=== PATIENT | male | born 1945 | race Caucasian/White ===

== ENCOUNTER 2020-05-28 08:06 | Emergency (ER) | payer OTHER ==
[~2020-05-28] VITALS: Ht 190.5 cm; Wt 114.3 kg
[~2020-05-28 08:06] MED LIST: ALBU3IS INH; ALBU90OI INH; ALLERGY10 MG PO; AMLO10 PO; ASPI81CH PO; Arthritis Pai42.5 GM TOP; BENMENLOZ PO; BENZ100A PO; BUDE6HFA INH; BUPR100 PO; BUPR100ER PO; CHOL10002 PO; COMBIVENT RESPIM4 GM INH; Doc-Q-Lace100 MG PO; FERR325 PO; FLUT220OIA; GAVILAX17 GM PO; GUAI600T33 PO; Guaifenesin Wit10 ML PO; LEVFLO500 PO; LIOT25 PO; LIOT50 PO; LITH300C PO; LORA.5 PO; LORA10 PO; MELA3 PO; OXYB5 PO; OXYC5 PO; PANT40 PO; PRAZ1 PO; PRAZ2 PO; PRAZ5 PO; PRED20 PO; PROP10 PO; Prednisone20 MG PO; QUET25 PO; RANI150 PO; Restoril30 MG PO; SENN187 PO; TAMS.4ER PO; TRAZ50 PO; TRIA80TC TOP; VITAMIN B12-FO1 EACH PO; Zithromax250 MG PO
[2020-05-28] MEDS ORDERED: Amoxicillin500 MG PO (08:46)
[2020-05-28] MEDS ORDERED: CIPRODEX OTIC7.5 M1 BOTHEARS (08:46)
== END 2020-05-28 08:56 | disposition home or self-care (01) ==
LOC: ER 08:06
DX: H66.93 Otitis media, unspecified, bilateral (principal); H60.93 Unspecified otitis externa, bilateral; J44.9 Chronic obstructive pulmonary disease, unspecified; F03.90 Unspecified dementia, unspecified severity, without behavioral disturbance, psychotic disturbance, mood disturbance, and anxiety; F43.10 Post-traumatic stress disorder, unspecified; Z87.891 Personal history of nicotine dependence; Z79.899 Other long term (current) drug therapy; Z79.82 Long term (current) use of aspirin; Z79.51 Long term (current) use of inhaled steroids; Z88.8 Allergy status to other drugs, medicaments and biological substances
CPT/HCPCS: 99282

== ENCOUNTER 2020-09-13 11:48 | Emergency (ER) | payer OTHER ==
[~2020-09-13] VITALS: Ht 190.5 cm; Wt 116.6 kg
[~2020-09-13 11:48] MED LIST changes: +Amoxicillin500 MG PO; +CIPRODEX OTIC7.5 M1 BOTHEARS
[2020-09-13] MEDS ORDERED: ATOR40TA PO (12:16)
[2020-09-13] MEDS ORDERED: BACL10 PO (12:17)
[2020-09-13] MEDS ORDERED: BUSP10 PO (12:18)
[2020-09-13] MEDS ORDERED: THERA-D2000 UNIT PO (12:19)
[2020-09-13] MEDS ORDERED: Colace250 MG PO (12:20)
[2020-09-13] MEDS ORDERED: LEVSOD75 PO (12:20)
[2020-09-13] MEDS ORDERED: FINA5 PO (12:20)
[2020-09-13] MEDS ORDERED: LIDO700A20 TOP (12:21)
[2020-09-13] MEDS ORDERED: MEMA5TAB PO (12:21)
[2020-09-13] MEDS ORDERED: OXYB5 PO (12:22)
[2020-09-13] MEDS ORDERED: Percocet 5-3251 EACH PO (12:23)
[2020-09-13] MEDS ORDERED: QUET25 PO (12:24)
[2020-09-13] MEDS ORDERED: PANT40 PO (12:24)
[2020-09-13] MEDS ORDERED: VALP250 PO (12:25)
[2020-09-13] MEDS ORDERED: TAMS.4ER PO (12:25)
[2020-09-13 12:28] LABS: BASOPHILS ABSOLUTE AUTO 0.03 K/mm3 (0.00-0.23); BASOPHILS PERCENT AUTO 1 % (0-2); EOSINOPHILS ABSOLUTE AUTO 0.09 K/mm3 (0.00-0.68); EOSINOPHILS PERCENT AUTO 2 % (0-6); Hematocrit 43.7 % (37.0-53.0); Hemoglobin 13.8 g/dL (13.5-17.5); IMMATURE GRAN ABSOLUTE AUTO 0.02 K/mm3 (0.00-0.10); IMMATURE GRAN PERCENT AUTO 1 % (0-1); LYMPHOCYTES ABSOLUTE AUTO 1.16 K/mm3 (0.84-5.20); LYMPHOCYTES PERCENT AUTO 27 % (21-46); MONOCYTES ABSOLUTE AUTO 0.42 K/mm3 (0.16-1.47); MONOCYTES PERCENT AUTO 10 % (4-13); Mean Corpuscular HGB 26.4 pg (26.0-34.0); Mean Corpuscular HGB Conc 31.6 g/dL (31.5-36.5); Mean Corpuscular Volume 84 fL (80-100); Mean Platelet Volume 12.5 fL (9.1-12.4); NEUTROPHILS ABSOLUTE AUTO 2.61 K/mm3 (1.96-9.15); NEUTROPHILS PERCENT AUTO 60 % (41-73); Platelet Count 113 K/mm3 (150-400); RDW Coefficient Variation 15.3 % (11.7-14.2); RDW Standard Deviation 46.5 fL (35.1-46.3); Red Blood Cell Count 5.22 M/mm3 (4.30-5.90); White Blood Cell Count 4.33 K/mm3 (4.00-11.30)
[2020-09-13] MEDS ORDERED: STRIVERDI RESPIM4 G1 INH (12:28)
[2020-09-13 12:44] LABS: Alanine Aminotransfer (ALT/SGP 21 U/L (12-78); Albumin, Blood 3.3 g/dL (3.4-5.0); Albumin/Globulin Ratio 1.1 (0.8-1.8); Alk Phos 54 U/L (50-136); Anion Gap 4 mmol/L (6-16); Aspartate Aminotrans (AST/SGOT 22 U/L (12-37); Bilirubin, Total 0.5 mg/dL (0.1-1.0); Blood Urea Nitrogen 21 mg/dL (8-24); Bun/Creatinine Ratio 21.1 (12.0-20.0); CO2, Blood 27 mmol/L (21-32); Calcium, Blood 8.1 mg/dL (8.5-10.1); Chloride, Blood 112 mmol/L (98-108); Globulin, Blood 2.9 g/dL (2.2-4.0); Glomerular Filtration Rate >60 (60-); Glucose, Blood 91 mg/dL (70-99); Sodium, Blood 143 mmol/L (136-145); Total Protein, Blood 6.2 g/dL (6.4-8.2); Troponin I <0.015 ng/mL (0.000-0.040)
[2020-09-13] MEDS ORDERED: CEPH500 PO (13:30)
== END 2020-09-13 14:00 | disposition home or self-care (01) ==
LOC: ER 11:48
PROVIDERS: Emergency Medicine
DX: R55 Syncope and collapse (principal); L03.116 Cellulitis of left lower limb; J44.9 Chronic obstructive pulmonary disease, unspecified; I10 Essential (primary) hypertension; E03.9 Hypothyroidism, unspecified; K21.9 Gastro-esophageal reflux disease without esophagitis; Z88.8 Allergy status to other drugs, medicaments and biological substances; Z79.899 Other long term (current) drug therapy
CPT/HCPCS: 36415; 80053; 84484; 85025; 93005; 93010; 93922; 99285-25

== ENCOUNTER 2021-10-29 17:25 | Emergency (ER) | payer OTHER ==
[~2021-10-29] VITALS: Ht 190.5 cm; Wt 122.9 kg
[~2021-10-29 17:25] MED LIST changes: +ATOR40TA PO; +BACL10 PO; +BUSP10 PO; +CEPH500 PO; +Colace250 MG PO; +FINA5 PO; +LEVSOD75 PO; +LIDO700A20 TOP; +MEMA5TAB PO; +Percocet 5-3251 EACH PO; +STRIVERDI RESPIM4 G1 INH; +THERA-D2000 UNIT PO; +VALP250 PO
[2021-10-29 18:28] LABS: BASOPHILS ABSOLUTE AUTO 0.03 K/mm3 (0.00-0.23); BASOPHILS PERCENT AUTO 1 % (0-2); EOSINOPHILS PERCENT AUTO 2 % (0-6); Hematocrit 46.5 % (37.0-53.0); IMMATURE GRAN ABSOLUTE AUTO 0.01 K/mm3 (0.00-0.10); IMMATURE GRAN PERCENT AUTO 0 % (0-1); LYMPHOCYTES PERCENT AUTO 25 % (21-46); MONOCYTES ABSOLUTE AUTO 0.45 K/mm3 (0.16-1.47); MONOCYTES PERCENT AUTO 7 % (4-13); Mean Corpuscular HGB 25.4 pg (26.0-34.0); Mean Corpuscular HGB Conc 32.3 g/dL (31.5-36.5); Mean Corpuscular Volume 79 fL (80-100); NEUTROPHILS ABSOLUTE AUTO 3.99 K/mm3 (1.96-9.15); NEUTROPHILS PERCENT AUTO 66 % (41-73); Platelet Count 97 K/mm3 (150-400); RDW Coefficient Variation 16.7 % (11.7-14.2); RDW Standard Deviation 48.2 fL (35.1-46.3); White Blood Cell Count 6.08 K/mm3 (4.00-11.30)
[2021-10-29 18:30] LABS: Mean Platelet Volume 11.5 fL (9.1-12.4)
[2021-10-29 18:44] LABS: Alanine Aminotransfer (ALT/SGP 19 U/L (12-78); Albumin, Blood 4.2 g/dL (3.4-5.0); Albumin/Globulin Ratio 1.2 (0.8-1.8); Alk Phos 71 U/L (50-136); Anion Gap 4 mmol/L (6-16); Aspartate Aminotrans (AST/SGOT 14 U/L (12-37); Bilirubin, Total 0.7 mg/dL (0.1-1.0); Blood Urea Nitrogen 17 mg/dL (8-24); Bun/Creatinine Ratio 21.4 (12.0-20.0); CO2, Blood 27 mmol/L (21-32); Calcium, Blood 9.1 mg/dL (8.5-10.1); Chloride, Blood 106 mmol/L (98-108); Creatinine, Blood 0.79 mg/dL (0.60-1.20); Globulin, Blood 3.4 g/dL (2.2-4.0); Glomerular Filtration Rate >60 (60-); Glucose, Blood 100 mg/dL (70-99); Potassium, Blood 4.1 mmol/L (3.5-5.5); Sodium, Blood 137 mmol/L (136-145); Total Protein, Blood 7.6 g/dL (6.4-8.2)
[2021-10-29] MEDS ORDERED: PREG300 PO (19:31)
[2021-10-29] MEDS ORDERED: TRAM50 PO (19:32)
[2021-10-29] MEDS ORDERED: ACET500 PO (19:33)
[2021-10-29] MEDS ORDERED: B-121000 MC3 PO (19:34)
[2021-10-29] MEDS ORDERED: Flomax0.4 MG PO (19:40)
[2021-10-29] MEDS ORDERED: ADULT GLYCERIN1 EACH PR (20:46)
[2021-10-29] MEDS ORDERED: MAGCIT300 PO (20:46)
== END 2021-10-29 21:25 | disposition home or self-care (01) ==
LOC: ER 17:25
PROVIDERS: Physician Assistant
DX: K59.00 Constipation, unspecified (principal); K44.9 Diaphragmatic hernia without obstruction or gangrene; J44.9 Chronic obstructive pulmonary disease, unspecified; I10 Essential (primary) hypertension; E03.9 Hypothyroidism, unspecified; G47.30 Sleep apnea, unspecified; K21.9 Gastro-esophageal reflux disease without esophagitis; Z87.891 Personal history of nicotine dependence; Z79.899 Other long term (current) drug therapy
CPT/HCPCS: 36415; 74177; 80053; 85025; A9270; Q9967

== ENCOUNTER 2022-10-22 13:20 | Inpatient (IN) | payer OTHER ==
[~2022-10-22] VITALS: Ht 190.5 cm; Wt 118.0 kg
[~2022-10-22 13:20] MED LIST changes: +ACET500 PO; +ADULT GLYCERIN1 EACH PR; +B-121000 MC3 PO; +Flomax0.4 MG PO; +LOPE2C PO; +MAGCIT300 PO; +PREG300 PO; +SEROQUEL25 MG PO; +TRAM50 PO; +Voltaren100 GM TOP
[2022-10-22 14:37] LABS: BASOPHILS ABSOLUTE AUTO 0.02 K/mm3 (0.00-0.23); BASOPHILS PERCENT AUTO 0 % (0-2); EOSINOPHILS ABSOLUTE AUTO 0.07 K/mm3 (0.00-0.68); EOSINOPHILS PERCENT AUTO 1 % (0-6); Hematocrit 33.6 % (37.0-53.0); Hemoglobin 10.1 g/dL (13.5-17.5); IMMATURE GRAN ABSOLUTE AUTO 0.02 K/mm3 (0.00-0.10); IMMATURE GRAN PERCENT AUTO 0 % (0-1); LYMPHOCYTES PERCENT AUTO 14 % (21-46); MONOCYTES ABSOLUTE AUTO 0.78 K/mm3 (0.16-1.47); MONOCYTES PERCENT AUTO 10 % (4-13); Mean Corpuscular HGB 21.8 pg (26.0-34.0); Mean Corpuscular HGB Conc 30.1 g/dL (31.5-36.5); Mean Corpuscular Volume 72 fL (80-100); NEUTROPHILS ABSOLUTE AUTO 5.71 K/mm3 (1.96-9.15); NEUTROPHILS PERCENT AUTO 74 % (41-73); Platelet Count 131 K/mm3 (150-400); RDW Coefficient Variation 18.1 % (11.7-14.2); RDW Standard Deviation 46.4 fL (35.1-46.3); Red Blood Cell Count 4.64 M/mm3 (4.30-5.90)
[2022-10-22 14:49] LABS: Albumin, Blood 3.4 g/dL (3.4-5.0); Albumin/Globulin Ratio 1.1 (0.8-1.8); Bilirubin, Total 0.3 mg/dL (0.1-1.0); Bun/Creatinine Ratio 19.9 (12.0-20.0); Calcium, Blood 8.6 mg/dL (8.5-10.1); Creatinine, Blood 0.96 mg/dL (0.60-1.20); Potassium, Blood 3.9 mmol/L (3.5-5.5); Total Protein, Blood 6.4 g/dL (6.4-8.2)
[2022-10-23 05:24] LABS: BASOPHILS ABSOLUTE AUTO 0.02 K/mm3 (0.00-0.23); BASOPHILS PERCENT AUTO 0 % (0-2); EOSINOPHILS PERCENT AUTO 2 % (0-6); Hematocrit 33.6 % (37.0-53.0); Hemoglobin 10.4 g/dL (13.5-17.5); IMMATURE GRAN ABSOLUTE AUTO 0.02 K/mm3 (0.00-0.10); IMMATURE GRAN PERCENT AUTO 0 % (0-1); LYMPHOCYTES ABSOLUTE AUTO 1.22 K/mm3 (0.84-5.20); LYMPHOCYTES PERCENT AUTO 19 % (21-46); MONOCYTES ABSOLUTE AUTO 0.67 K/mm3 (0.16-1.47); MONOCYTES PERCENT AUTO 11 % (4-13); Mean Corpuscular HGB 22.2 pg (26.0-34.0); Mean Corpuscular Volume 72 fL (80-100); NEUTROPHILS ABSOLUTE AUTO 4.29 K/mm3 (1.96-9.15); NEUTROPHILS PERCENT AUTO 68 % (41-73); Platelet Count 135 K/mm3 (150-400); RDW Coefficient Variation 18.4 % (11.7-14.2); RDW Standard Deviation 45.9 fL (35.1-46.3); Red Blood Cell Count 4.69 M/mm3 (4.30-5.90); White Blood Cell Count 6.32 K/mm3 (4.00-11.30)
[2022-10-23 05:45] LABS: Albumin, Blood 3.2 g/dL (3.4-5.0); Albumin/Globulin Ratio 0.9 (0.8-1.8); Bilirubin, Total 0.5 mg/dL (0.1-1.0); Bun/Creatinine Ratio 19.9 (12.0-20.0); Calcium, Blood 8.5 mg/dL (8.5-10.1); Creatinine, Blood 0.86 mg/dL (0.60-1.20); Globulin, Blood 3.4 g/dL (2.2-4.0); Potassium, Blood 3.6 mmol/L (3.5-5.5); Total Protein, Blood 6.6 g/dL (6.4-8.2)
--- NOTE | 2022-10-23 06:15 | NUR ---
SHIFT SUMMARY A/Ox3-4 AND IS COOPERATIVE WITH CARE PROVIDED BY MEMBERS OF STAFF. ABLE TO MAKE NEEDS KNOWN AND ANSWERS QUESTIONS APPROPRIATELY. MAINTAINS SPO2 >90% ON 2-3L VIA NO WITH NO C/O SOB OR DYSPNEA WHILE AT REST. CARDIAC [place], REMAINED SR W/PVC'S 70-90'S. SBP REMAINS STABLE WITH NO REPORTS OF CP OR PRESSURE T/O THE NIGHT. PT WAS ER ADMIT FROM [facility] YESTERDAY PM. PT TESTED POSITIVE FOR COVID-19 AT [facility] AND WAS BROUGHT TO PCU. RAPID ANTIGEN TEST PERFORMED HERE WITH NEGATIVE RESULTS. ABLE TO IND VOID IN THE URINAL. VERY UNITED [place], BUT DOES MAKE USE OF BILAT HEARING AIDES. NO ACUTE CHANGES OVER NIGHT. HAS BEEN RECEIVING ANITBIOTICS ORDERED PER EMAR. NO NEW ORDERS AT THIS TIME, WILL REPORT TO ONCOMING RN.
--- NOTE | 2022-10-23 10:18 | NUR ---
AM NOTE: PATIENT ALERT AND ORIENTED X3. MILD DEMENTIA. PATIENT BEING GOOFY AND JOKING AROUND WITH STAFF THIS MORNING. VERY HARD OF HEARING. BILATERAL HEARING AIDS IN PLACE. PERRLA, WEARING GLASSES. DENIES HEADACHE/DIZZINESS. FOLLOWING COMMANDS. BILATERAL HEALTH ADMINISTRATOR STRENGTH AND EXTREMITY MOVEMENTS. UP TO CHAIR WITH OT. ONE PERSON ASSIST WITH FWW AND GAIT BELT. BED BATH GIVEN THIS MORNING. TELE SHOWING SR WITH HR 70-80'S. BP STABLE. DENIES CHEST PAIN/PRESSURE. HEART TONES DISTANT. NO SIGNS OF EDEMA. PPP. ON RA-2L. NEEDING 2L WHEN WORKING WITH OT. SATING 90-94% ON ROOM AIR AT REST. LUNGS SOUNDING CLEAR IN UPPER LOBES AND COARSE IN LOWER. OCCASIONAL MOIST/CONGESTED SOUNDING COUGH WITH MODERATE THICK SPUTUM. SPEECH THERAPY IN THIS AM AND NEW ORDERS IN PLACE. PATIENT STATES HE HAS A SPEECH THERAPIST FROM THE [place] THAT COMES TO HIS HOUSE TO SEE HIM. DENIES ABDOMINAL PAIN/NAUSEA. BOWEL TONES PRESENT. EATING WNL PER SPEECH ORDERS. USING URINAL AND OCCASIONAL INCONTINENT EPISODES. INCENTIVE SPIROMETER PROVIDED AND EDUCATED BY THIS RN. SPOKE WITH BRINA ON PHONE THIS MORNING AND PROVIDED UPDATE. PATIENT SITTING IN RECLINER AT THIS TIME WITH CHAIR ALARM IN PLACE WATCHING TV. ABLE TO MAKE NEEDS KNOWN USING CALL LIGHT. WILL CONTINUE TO MONITOR.
--- NOTE | 2022-10-23 17:49 | NUR ---
SHIFT SUMMARY: NO ACUTE CHANGES. VITAL SIGNS REMAINS STABLE. PATIENT REMAINS ON ROOM AIR, SATING ABOVE 94%. NO TELE EVENTS. COMPLAINS OF SHOULDER PAIN, MEDICATED PER EMAR X1 WITH GOOD RELIEF. EATING AND VOIDING WNL. BED BATH GIVEN. PATIENT STATES HE FELT GREAT THIS MORNING AND THEN DIDN'T FEEL WELL THROUGHOUT THE AFTERNOON. FLUTTER AND INCENTIVE SPIROMETER ENCOURAGED. PATIENT COUGHING UP MODERATE AMOUNT OF SPUTUM. SPEECH THERAPY ORDERS IN PLACE AND FOLLOWED. ABX INFUSED. BRINA IN TO VISIT AND UPDATED ON PLAN OF CARE. WILL CONTINUE TO MONITOR AND REPORT OFF TO ONCOMING RN.
[2022-10-23] MEDS ORDERED: Voltaren100 GM TOP (18:19)
--- NOTE | 2022-10-23 20:50 | NUR ---
ASSUMPTION OF CARE THIS RN ASSUMED CARE OF PATIENT AT 1900. REPORT TAKEN FROM KRISH GARCÍA. PATIENT IS ALERT AND ORIENTED X3-4. FORGETFUL. [place]. FOLLOWING COMMANDS AND ANSWERING QUESTIONS APPROPRIATELY. BECOMES DISTRACTED EASILY; TANGENTIAL SPEECH. BP STABLE. SR WITH FREQUENT PVC'S NOTED, HR 70-80'S. AFEBRILE. SPO2 >90% ON RA. DENIES SOB AT THIS TIME. DENIES CHEST PAIN/PRESSURE. INCONTINENT OF URINE, REQUIRING BED CHANGE AT SHIFT CHANGE. BED IN LOWEST POSITION AND CALL LIGHT WITHIN REACH.
--- NOTE | 2022-10-24 04:29 | NUR ---
SHIFT SUMMARY NO ACUTE CHANGES OVERNIGHT. PATIENT PLACED ON 2L VIA NC WHILE SLEEPING D/T SLEEP APNEA AND DESATTING WHILE SLEEPING. OTHERWISE VITALS STABLE. PATIENT [place]. ALERT AND ORIENTED 3-4. FORGETFUL. HX DEMENTIA. INCONTINENT OF URINE. PATIENT ROLLING SELF IN BED INDEPENDENTLY. BED IN LOWEST POSITION AND CALL LIGHT WITHIN REACH. THIS RN WILL CONTINUE TO MONITOR UNTIL SHIFT CHANGE AT 0700.
[2022-10-24 05:05] LABS: BASOPHILS ABSOLUTE AUTO 0.03 K/mm3 (0.00-0.23); BASOPHILS PERCENT AUTO 1 % (0-2); EOSINOPHILS PERCENT AUTO 2 % (0-6); Hematocrit 33.6 % (37.0-53.0); Hemoglobin 10.1 g/dL (13.5-17.5); IMMATURE GRAN ABSOLUTE AUTO 0.03 K/mm3 (0.00-0.10); IMMATURE GRAN PERCENT AUTO 1 % (0-1); LYMPHOCYTES ABSOLUTE AUTO 1.05 K/mm3 (0.84-5.20); LYMPHOCYTES PERCENT AUTO 21 % (21-46); MONOCYTES ABSOLUTE AUTO 0.61 K/mm3 (0.16-1.47); MONOCYTES PERCENT AUTO 12 % (4-13); Mean Corpuscular HGB 21.8 pg (26.0-34.0); Mean Corpuscular HGB Conc 30.1 g/dL (31.5-36.5); Mean Corpuscular Volume 72 fL (80-100); NEUTROPHILS ABSOLUTE AUTO 3.31 K/mm3 (1.96-9.15); NEUTROPHILS PERCENT AUTO 65 % (41-73); Platelet Count 118 K/mm3 (150-400); RDW Coefficient Variation 18.4 % (11.7-14.2); RDW Standard Deviation 46.8 fL (35.1-46.3); Red Blood Cell Count 4.64 M/mm3 (4.30-5.90); White Blood Cell Count 5.13 K/mm3 (4.00-11.30)
[2022-10-24 05:23] LABS: Bun/Creatinine Ratio 20.4 (12.0-20.0); Calcium, Blood 8.2 mg/dL (8.5-10.1); Creatinine, Blood 0.69 mg/dL (0.60-1.20); Potassium, Blood 3.5 mmol/L (3.5-5.5)
[2022-10-24] MEDS ORDERED: AMOX875 PO (13:28)
[2022-10-24] MEDS ORDERED: VISBIOME 112.51 EACH PO (13:31)
--- NOTE | 2022-10-24 17:23 | NUR ---
PT DISCHARGE TO HOME WITH DISCHARGE ORDERS AND HOME HEALTH. HOME O2 EVAL DONE PT REQUIRING 1L OF O2 WITH EXERTION, PSYCHOLOGIST CLINICAL [facility] AND SAID IT MIGHT TAKE 2 DAYS TO GET IT DELIVERED, PT REALLY WANTING TO GO HOME DR BARRIOS WAS CALLED OKAY'D THE PT TO GO HOME TODAY WITHOUT O2 AND [facility]LLOW UP [facility] TOM[facility] SINCE PT HAS BEEN ON RA SATTING 94-96% ALL DAY AND JUST HAVE IT JUST INCASE HE NEEDS IT AT HOME. BOTH AND PT WERE AGREEABLE. REFERRAL TO [facility] PER . PT DENIES ANY CHEST PAIN/PRESSURE, HAS BEEN STANDING AND AMBULATING VIA WALKER SBA, PT WORKED WITH PT/OT WITH NO ISSUES, TO CONTINUE PT ON [facility] SOFT AND NECTAR THICK DIET PER SPEECH THERAPIST. NO OTHER ISSUES ENCOUNTERED PT ACCOMPANIED VIA WHEELCHAIR FOR TRANSPORT ALL BELONGINGS SENT WITH THE PT, PROVIDED TRANSPORTATION.
== END 2022-10-24 16:00 | disposition home health service (06) | DRG 177 ==
LOC: ER 13:20 → PCU 16:45
PROVIDERS: Student in an Organized Health Care Education/Training Program; ADMIT Hospitalist
DX: J69.0 Pneumonitis due to inhalation of food and vomit (principal); J96.01 Acute respiratory failure with hypoxia; J44.0 Chronic obstructive pulmonary disease with (acute) lower respiratory infection; J98.11 Atelectasis; J44.1 Chronic obstructive pulmonary disease with (acute) exacerbation; I49.9 Cardiac arrhythmia, unspecified; N40.0 Benign prostatic hyperplasia without lower urinary tract symptoms; R13.10 Dysphagia, unspecified; K21.9 Gastro-esophageal reflux disease without esophagitis; Z66 Do not resuscitate; E78.5 Hyperlipidemia, unspecified; I10 Essential (primary) hypertension; E03.9 Hypothyroidism, unspecified; G47.33 Obstructive sleep apnea (adult) (pediatric); F43.10 Post-traumatic stress disorder, unspecified; F03.90 Unspecified dementia, unspecified severity, without behavioral disturbance, psychotic disturbance, mood disturbance, and anxiety; G89.4 Chronic pain syndrome; Z98.890 Other specified postprocedural states; Z87.891 Personal history of nicotine dependence; Z88.8 Allergy status to other drugs, medicaments and biological substances; Z79.899 Other long term (current) drug therapy; Z23 Encounter for immunization; Z79.51 Long term (current) use of inhaled steroids; Z79.02 Long term (current) use of antithrombotics/antiplatelets
CPT/HCPCS: 36415; 71046; 71260; 80048; 80053; 83880; 84443; 85025; 90686; 92526; 92610; 93005; 93010; 94664; 94761; 94762; 96372; 96374-59; 96376; 97110; 97116; 97162; 97166; 97530; 97535; 99285-25; A9270; G0008; G0378; J0295; J1650; J2543; Q9967

== ENCOUNTER 2023-07-03 13:27 | Inpatient (IN) | payer OTHER ==
[~2023-07-03] VITALS: Ht 190.5 cm; Wt 135.6 kg
[~2023-07-03 13:27] MED LIST changes: +AMOX875 PO; +Cymbalta20 MG PO; +MEMA10 PO; -MEMA5TAB PO; +MONT10T PO; +VISBIOME 112.51 EACH PO
[2023-07-03 15:01] LABS: BASOPHILS ABSOLUTE AUTO 0.04 K/mm3 (0.00-0.23); BASOPHILS PERCENT AUTO 1 % (0-2); EOSINOPHILS ABSOLUTE AUTO 0.13 K/mm3 (0.00-0.68); EOSINOPHILS PERCENT AUTO 2 % (0-6); Hematocrit 41.2 % (37.0-53.0); Hemoglobin 11.9 g/dL (13.5-17.5); IMMATURE GRAN ABSOLUTE AUTO 0.07 K/mm3 (0.00-0.10); IMMATURE GRAN PERCENT AUTO 1 % (0-1); LYMPHOCYTES ABSOLUTE AUTO 1.05 K/mm3 (0.84-5.20); LYMPHOCYTES PERCENT AUTO 13 % (21-46); MONOCYTES ABSOLUTE AUTO 0.56 K/mm3 (0.16-1.47); MONOCYTES PERCENT AUTO 7 % (4-13); Mean Corpuscular HGB Conc 28.9 g/dL (31.5-36.5); Mean Corpuscular Volume 73 fL (80-100); NEUTROPHILS ABSOLUTE AUTO 6.28 K/mm3 (1.96-9.15); NEUTROPHILS PERCENT AUTO 77 % (41-73); Platelet Count 167 K/mm3 (150-400); RDW Coefficient Variation 23.9 % (11.7-14.2); RDW Standard Deviation 59.7 fL (35.1-46.3); Red Blood Cell Count 5.68 M/mm3 (4.30-5.90); White Blood Cell Count 8.13 K/mm3 (4.00-11.30)
[2023-07-03 15:44] LABS: Albumin, Blood 3.5 g/dL (3.4-5.0); Bilirubin, Total 0.3 mg/dL (0.1-1.0); Bun/Creatinine Ratio 14.1 (12.0-20.0); Calcium, Blood 8.6 mg/dL (8.5-10.1); Creatinine, Blood 0.85 mg/dL (0.60-1.20); Globulin, Blood 3.4 g/dL (2.2-4.0); Potassium, Blood 4.5 mmol/L (3.5-5.5); Total Protein, Blood 6.9 g/dL (6.4-8.2)
[2023-07-03 16:06] LABS: Free Thyroxine 1.02 ng/dL (0.70-1.60)
[2023-07-03 16:09] LABS: Thyroid Stimulating Hormone 1.63 uIU/mL (0.360-4.800)
[2023-07-03 17:31] LABS: Anti-Xa UFH, PHA Monitoring <0.10 IU/mL; International Normalized Ratio 1.07; Prothrombin Time Results 11.2 Sec (9.7-11.5)
[2023-07-03 21:12] VITALS: BP 156/99
[2023-07-03] MEDS ORDERED: IPRAT-ALBUT 0.5-3 ML INH (22:46)
[2023-07-03] MEDS ORDERED: ASMANEX HFA13 G6 INH (22:47)
--- NOTE | 2023-07-04 04:10 | NUR ---
SHIFT SUMMARY/ADMISSION NOTE PATIENT ARRIVED TO UNIT FROM ED AT 21:02. A/Ox3, PLEASANT, CONFUSED AT TIMES, FORGETFUL. STATES HIS DEMENTIA COMES AND GOES, MANAGES ALL CARE AND MEDICATIONS. DENIES CURRENT PAIN, STATES Hx OF CHRONIC LUMBAR PAIN. WAS AT [facility] WITH C/O INCREASED FATIGUE/SOB. HAD ELEVATED HR, TAKEN TO ED, NEW AFLUTTER. ON TELE, CURENTLY IN AFIB 80-90s. ASLEEP OFF AND ON, IN NO ACUTE DISTRESS. BED ALARM ON FOR PATIENT SAFETY, CALL LIGHT IN REACH.
[2023-07-04 04:15] VITALS: BP 128/79
[2023-07-04 04:47] LABS: Hematocrit 38.4 % (37.0-53.0); Hemoglobin 11.1 g/dL (13.5-17.5); Mean Corpuscular HGB 20.9 pg (26.0-34.0); Mean Corpuscular HGB Conc 28.9 g/dL (31.5-36.5); Mean Corpuscular Volume 73 fL (80-100); Platelet Count 146 K/mm3 (150-400); RDW Coefficient Variation 23.5 % (11.7-14.2); White Blood Cell Count 6.29 K/mm3 (4.00-11.30)
[2023-07-04 06:19] LABS: Calcium, Blood 8.3 mg/dL (8.5-10.1); Creatinine, Blood 0.94 mg/dL (0.60-1.20); Potassium, Blood 4.2 mmol/L (3.5-5.5)
[2023-07-04 08:55] VITALS: BP 119/81
[2023-07-04 12:43] VITALS: BP 113/79
[2023-07-04 16:06] VITALS: BP 116/67
--- NOTE | 2023-07-04 17:54 | NUR ---
PATIENT A/O X3-4, FORGETFUL AT TIMES. VSS, WEANED DOWN TO RA THIS EVENING AND MAINTAING SATS >90%. UP IN CHAIR FOR MOST OF THE AFTERNOON, ABLE TO TRANSFER WITH FWW AND 1-2 ASSIST. VOIDING IN URINAL. 20G IV TO R FA WNL AND SL. A-FLUTTER ON TELE, RATE CONTROLLED IN THE 70-80'S THIS SHIFT. PATIENT USING CALL LIGHT APPROPRIATELY FOR ASSISTANCE. FALL PREACAUTIONS IN PLACE. PLEASANT AND COOPERATIVE, VERY HARD OF HEARING.
[2023-07-04 19:50] VITALS: BP 103/90
[2023-07-04 19:51] VITALS: BP 103/90
--- NOTE | 2023-07-04 20:41 | NUR ---
LIDOCAINE PATCHES REMOVED X2 - ONE FROM UPPER BACK, ONE FROM LOWER BACK. PT PLACED BACK INTO BED WITH 1 PERSON ASSIST, WITH OFFICE WORKER.
[2023-07-05 00:10] VITALS: BP 113/78
--- NOTE | 2023-07-05 04:38 | NUR ---
ASSUMED CARE OF PT AT 1900. PT WITH INITIAL CONFUSION THAT CLEARED DURING THE SHIFT. VSS, MEDICATIONS PROVIDED WHOLE WITH WATER. RR STATUS STABLE WHILE ON R/A. NOT TOLERATING HOSPITAL CPAP, STATES THAT HOME CPAP DOES NOT HAVE THE CORRECT SETTING. USING 2LNC DURING SLEEPING TO MAINTAIN SATURATION 89 TO 94%. TELEMETRY REMAINS IN PLACE WITH SPO2 MONITORING. AFIB DURING SHIFT WITH HR 60-85. REPORT OF [facility] DURING THE BEGING OF THE SHIFT FROM [employer]. CALL TAKEN BY RICKY RUTHERFORD AND DISCUSSED WITH TRANSMISSION SUPERINTENDENT. PT REMAINED ASYMPTOMATIC THORUGHOUT THE SHIFT. VOIDING CLEAR YELLOW URINE IN THE URINAL. PT REPORTS NO PAIN DURING SHIFT. NEEDS WERE MET, AND SAFETY MEASURES ADDRESS.
[2023-07-05 05:28] VITALS: BP 118/84
[2023-07-05 05:28] LABS: Hemoglobin 10.8 g/dL (13.5-17.5); Mean Corpuscular HGB 20.7 pg (26.0-34.0); Mean Corpuscular HGB Conc 28.4 g/dL (31.5-36.5); Mean Corpuscular Volume 73 fL (80-100); Platelet Count 141 K/mm3 (150-400); RDW Coefficient Variation 23.1 % (11.7-14.2); RDW Standard Deviation 58.3 fL (35.1-46.3); Red Blood Cell Count 5.22 M/mm3 (4.30-5.90); White Blood Cell Count 5.91 K/mm3 (4.00-11.30)
[2023-07-05 05:49] LABS: Bun/Creatinine Ratio 19.2 (12.0-20.0); Calcium, Blood 8.9 mg/dL (8.5-10.1); Creatinine, Blood 1.04 mg/dL (0.60-1.20)
[2023-07-05 07:22] VITALS: BP 113/73
[2023-07-05 17:01] VITALS: BP 127/95
--- NOTE | 2023-07-05 17:28 | NUR ---
PATIENT A/O X3-4 THIS SHIFT, OCCASIONAL FORGETFULNESS. MAINTAINING SATS ON RA TODAY. CONTINUES TO HAVE HARSH PRODUCTIVE COUGH. WORKED WITH PT/OT TODAY AND WAS ABLE TO WALK IN HALLS. UP WITH 1 ASSIST AND FWW. FALL PRECAUTIONS IN PLACE. MED REC COMPLETED TODAY AND PATIENTS [facility]. NO NEW CONCERNS THIS SHIFT.
[2023-07-05] MEDS ORDERED: XARELTO20 MG PO (17:35)
[2023-07-05] MEDS ORDERED: METO50 PO (17:35)
[2023-07-05 19:38] VITALS: BP 138/73
--- NOTE | 2023-07-06 03:40 | NUR ---
1900: ASSUMED CARE OF PT. REPORT RECEIVED FROM DAY SHIFT RN. PT IS SITTING UP IN THE CHAIR, ONE ASSIST BACK TO BED. MAINTAINING SATURATION ON RA WITH EVEN AND UNLABORED BREATHING. PT IS A/O X4, DISCUSSING PLAN TO RETURN HOME TOMORROW. VSS, MEDICATIONS PROVIDED WITH APPLESAUCE, PT TOLERATED WELL. TELEMETRY IN PLACE WITH ATRIAL FLUTTER HR 60-80. USED HOME CPAP THROUGHOUT THE NIGHT WITH INTERVENTION X3 TO ASSIST WITH POSITIONING OF CPAP MASK. NO ACUTE DISTRESS, OR PAIN DURING THE SHIFT. PT RESTED COMPORTABLY. NEEDS ADDRESSED AND SAFETY PRECAUTIONS TAKEN.
[2023-07-06 05:23] VITALS: BP 115/71
[2023-07-06 06:20] LABS: Hematocrit 37.7 % (37.0-53.0); Mean Corpuscular HGB 21.4 pg (26.0-34.0); Mean Corpuscular HGB Conc 29.2 g/dL (31.5-36.5); Mean Corpuscular Volume 73 fL (80-100); Platelet Count 139 K/mm3 (150-400); RDW Coefficient Variation 22.7 % (11.7-14.2); RDW Standard Deviation 58.4 fL (35.1-46.3); Red Blood Cell Count 5.15 M/mm3 (4.30-5.90); White Blood Cell Count 4.98 K/mm3 (4.00-11.30)
[2023-07-06 06:44] LABS: Bun/Creatinine Ratio 26.2 (12.0-20.0); Calcium, Blood 8.8 mg/dL (8.5-10.1); Creatinine, Blood 0.96 mg/dL (0.60-1.20); Potassium, Blood 4.2 mmol/L (3.5-5.5)
[2023-07-06 07:15] VITALS: BP 109/73
[2023-07-06 15:58] VITALS: BP 127/44
--- NOTE | 2023-07-06 17:37 | NUR ---
NOTE PT ALERT AND ORIENTED MOSTLY. VERY [place]. QUIT LOAD WHEN HE TALKS. AMENA LACYJOSE F D/T POOR FITTING DENTURES. BRINA HERE FOR LUNCH. THOUGHT HE WAS GOING TO DISCHARGE HOME. PASSED HIS HOME O2 EVAL. PT USES CPAP AT HOME WITHOUT BLEED IN. CONTINIOUS BIOX AT BEDSIDE. TELE OFF. WHEN TELE WAS ON HE WAS ATRIAL FLUTTER 3:1. VENTRICULAR RATE 77. VOIDING CLEAR YELLOW URINE PER URINAL. EATING WELL. PT HAS CHRONIC PAIN BUT HE REFUSED THE LIDODERM PATCHS THATHE USES AT HOME. CARE ON GOING.
[2023-07-06 19:12] VITALS: BP 123/81
--- NOTE | 2023-07-07 04:10 | NUR ---
1900: ASSUMED CARE OF PT, REPORT RECEIVED FROM KELLI RN. PT IS SITTING UP IN THE CHAIR, FINISHED WITH HIS DINNER, REQUEST TO GET BACK IN BED. DRY DRUG WORKER HELPING TO CHANGE GOWN AND TRANSFER. A/O X4. DISCUSSES DISAPOINTMENT IN NOT GOING HOME TODAY. VSS, MEDICATION PROVIDED ORDERED. PT TOLERATED WELL WITH APPLESAUCE. SLEPT MOST OF THE SHIFT WITH CPAP IN PLACE AFTER RESPIRATORY TREATMENT. ASSISTED IN CPAP POSITIONING MULTIPLE TIMES DURING THE NIGHT TO MAINTAIN SATURATIONS. NEEDS WERE MET AND SAFETY MEASURES TAKEN.
[2023-07-07 04:54] LABS: Hematocrit 38.9 % (37.0-53.0); Hemoglobin 11.1 g/dL (13.5-17.5); Mean Corpuscular HGB 20.9 pg (26.0-34.0); Mean Corpuscular HGB Conc 28.5 g/dL (31.5-36.5); Mean Corpuscular Volume 73 fL (80-100); Platelet Count 143 K/mm3 (150-400); RDW Coefficient Variation 22.5 % (11.7-14.2); RDW Standard Deviation 57.6 fL (35.1-46.3); Red Blood Cell Count 5.32 M/mm3 (4.30-5.90); White Blood Cell Count 5.63 K/mm3 (4.00-11.30)
[2023-07-07 05:09] LABS: Bun/Creatinine Ratio 24.1 (12.0-20.0); Calcium, Blood 8.7 mg/dL (8.5-10.1)
[2023-07-07 05:47] VITALS: BP 132/89
[2023-07-07 07:26] VITALS: BP 129/75
[2023-07-07 08:34] LABS: Percent Saturation 4.6 % (20.0-50.0)
[2023-07-07] MEDS ORDERED: JARDIANCE10 MG PO (11:07)
[2023-07-07] MEDS ORDERED: TORSE20 PO (11:10)
== END 2023-07-07 12:40 | disposition home or self-care (01) | DRG 308 ==
LOC: ER 13:27 → SURS 13:38 → MEDS 13:38
PROVIDERS: Emergency Medicine; Family Medicine; Nurse Practitioner Acute Care; Student in an Organized Health Care Education/Training Program; ADMIT Internal Medicine
PROC: 5A09357 Assistance with Respiratory Ventilation, Less than 24 Consecutive Hours, Continuous Positive Airway Pressure (ICD-10-PCS; principal; 2023-07-06)
DX: I48.92 Unspecified atrial flutter (principal); I50.31 Acute diastolic (congestive) heart failure; J96.01 Acute respiratory failure with hypoxia; D64.9 Anemia, unspecified; R79.89 Other specified abnormal findings of blood chemistry; I10 Essential (primary) hypertension; G47.33 Obstructive sleep apnea (adult) (pediatric); N40.0 Benign prostatic hyperplasia without lower urinary tract symptoms; J44.9 Chronic obstructive pulmonary disease, unspecified; Z66 Do not resuscitate; F43.10 Post-traumatic stress disorder, unspecified; G89.4 Chronic pain syndrome; I48.91 Unspecified atrial fibrillation; I27.20 Pulmonary hypertension, unspecified; E03.9 Hypothyroidism, unspecified; I08.1 Rheumatic disorders of both mitral and tricuspid valves; J47.9 Bronchiectasis, uncomplicated; F01.50 Vascular dementia, unspecified severity, without behavioral disturbance, psychotic disturbance, mood disturbance, and anxiety; K21.9 Gastro-esophageal reflux disease without esophagitis; E66.9 Obesity, unspecified; Z88.8 Allergy status to other drugs, medicaments and biological substances; Z79.899 Other long term (current) drug therapy; Z79.51 Long term (current) use of inhaled steroids; Z79.890 Hormone replacement therapy; Z90.79 Acquired absence of other genital organ(s); Z87.891 Personal history of nicotine dependence; Z98.890 Other specified postprocedural states; Z68.28 Body mass index [BMI] 28.0-28.9, adult
CPT/HCPCS: 36415; 71046; 80048; 80053; 82728; 83540; 83550; 83735; 83880; 84439; 84443; 84484; 85025; 85027; 85379; 85520; 85610; 85730; 93005; 93010; 93306; 94640; 94660; 94664; 94761; 94762; 96374; 96375; 97116; 97161; 97165; 97530; 99285-25; A9270; G0378; J1644; J1940

== ENCOUNTER 2023-07-10 06:12 | Inpatient (IN) | payer OTHER ==
[~2023-07-10] VITALS: Ht 177.8 cm; Wt 131.7 kg
[~2023-07-10 06:12] MED LIST changes: +ASMANEX HFA13 G6 INH; +IPRAT-ALBUT 0.5-3 ML INH; +JARDIANCE10 MG PO; +METO50 PO; +TORSE20 PO; +XARELTO20 MG PO
[2023-07-10 06:42] LABS: PCO2 Arterial 43.2 mmHg (35-45); PO2 Arterial 111 mmHg (80-100); pH Blood Arterial 7.44 (7.35-7.45)
[2023-07-10 06:45] LABS: BASOPHILS ABSOLUTE AUTO 0.02 K/mm3 (0.00-0.23); BASOPHILS PERCENT AUTO 0 % (0-2); EOSINOPHILS ABSOLUTE AUTO 0.02 K/mm3 (0.00-0.68); EOSINOPHILS PERCENT AUTO 0 % (0-6); Hematocrit 42.2 % (37.0-53.0); Hemoglobin 12.2 g/dL (13.5-17.5); IMMATURE GRAN ABSOLUTE AUTO 0.03 K/mm3 (0.00-0.10); IMMATURE GRAN PERCENT AUTO 0 % (0-1); LYMPHOCYTES ABSOLUTE AUTO 0.17 K/mm3 (0.84-5.20); LYMPHOCYTES PERCENT AUTO 1 % (21-46); MONOCYTES ABSOLUTE AUTO 0.47 K/mm3 (0.16-1.47); MONOCYTES PERCENT AUTO 4 % (4-13); Mean Corpuscular HGB 21.1 pg (26.0-34.0); Mean Corpuscular HGB Conc 28.9 g/dL (31.5-36.5); Mean Corpuscular Volume 73 fL (80-100); NEUTROPHILS ABSOLUTE AUTO 11.57 K/mm3 (1.96-9.15); NEUTROPHILS PERCENT AUTO 94 % (41-73); Platelet Count 137 K/mm3 (150-400); RDW Coefficient Variation 22.5 % (11.7-14.2); RDW Standard Deviation 57.1 fL (35.1-46.3); Red Blood Cell Count 5.77 M/mm3 (4.30-5.90); White Blood Cell Count 12.28 K/mm3 (4.00-11.30)
[2023-07-10 07:10] LABS: Albumin, Blood 3.6 g/dL (3.4-5.0); Albumin/Globulin Ratio 1.1 (0.8-1.8); Bilirubin, Total 0.5 mg/dL (0.1-1.0); Calcium, Blood 8.6 mg/dL (8.5-10.1); Creatinine, Blood 1.05 mg/dL (0.60-1.20); Globulin, Blood 3.4 g/dL (2.2-4.0); Magnesium, Blood 1.8 mg/dL (1.6-2.4); Potassium, Blood 4.4 mmol/L (3.5-5.5)
[2023-07-10 08:35] LABS: Adenovirus Not Detected (NOT DETECT); Bordetella pertussis Not Detected (NOT DETECT); Chlamydophila pneumoniae Not Detected (NOT DETECT); Coronavirus 229E Not Detected (NOT DETECT); Coronavirus HKU1 Not Detected (NOT DETECT); Coronavirus NL63 Not Detected (NOT DETECT); Coronavirus OC43 Not Detected (NOT DETECT); Human Metapneumovirus Not Detected (NOT DETECT); Human Rhinovirus/Enterovirus Not Detected (NOT DETECT); Influenza A/2009-H1 Not Detected (NOT DETECT); Influenza A/H1 Not Detected (NOT DETECT); Influenza A/H3 Not Detected (NOT DETECT); Influenza B Not Detected (NOT DETECT); Mycoplasma pneumoniae Not Detected (NOT DETECT); Parainfluenza Virus 1 Not Detected (NOT DETECT); Parainfluenza Virus 2 Not Detected (NOT DETECT); Parainfluenza Virus 3 Not Detected (NOT DETECT); Parainfluenza Virus 4 Not Detected (NOT DETECT); Respiratory Syncytial Virus Not Detected (NOT DETECT); SARS-Cov-2 (COVID-19), BioFire Not Detected (NOT DETECT)
[2023-07-10 11:45] VITALS: BP 96/52
--- NOTE | 2023-07-10 12:20 | NUR ---
NURSING PCU DAYSHIFT: Assumed care of pt at approx 1135. Arrived from ER via gurney accompanied by RN and RT. Xfer to unit bed using slider sheet. Lethargic upon arrival though is arousable using verbal stimuli and is able to interact simply w/staff. Skin is pale w/no open wounds noted, unblanchable red/purple area to coccyx which is unopened. Tele place, aflutter w/HR 70-80's, no c/o CP/pressure, SBP 90 w/MAP of 65, 1+ RLE edema. L/S fairly tight t/o, fine crackles to LLL, dim/absent L/S in R mid/lower lobes, occ harsh/moist cough, bipap in place w/settings: 16/8, FiO2 50%, backup rate 12, O2 sat mid to upper 90's, continuous biox in place. Abd obese, nontender, BT+, condom cath in place w/no noted urine, pt denies need to void. PIV x1, s/l at time of arrival. No s/s of acute distress at this time. Appears to be resting comfortably w/bipap in place. RT at bedside for tx. Telephone update provided to by CN. Bed alarm set for safety purposes, call light in reach, cont to monitor for any changes.
[2023-07-10 16:10] VITALS: BP 116/57
--- NOTE | 2023-07-10 17:31 | NUR ---
NURSING PCU DAYSHIFT SUMMARY: Pt has done very well since admission. Off bipap early afternoon, while awake, tolerating 4L NC. Continuous O2 monitoring remains in place w/O2 sat upper 90's. OOB to recliner w/one staff assist, tolerated well. Condom cath removed, able to use urinal w/assistance, voiding well. Spouse spent majority of the afternoon at bedside. Plan of care discussed, questions answered. Pt currently in recliner having supper and watching tv, call light in reach, able to use w/o difficulty. No s/s of acute distress at this time, cont to monitor until rpt is given to NOC RN.
[2023-07-10 19:55] VITALS: BP 120/63
--- NOTE | 2023-07-10 20:44 | NUR ---
AOC: PATINET ALERT AND ORIENTED X 3, UNABLE TO BE MAKE COMPLEX DECISIONS, IS PRIMARY TERMITE EXTERMINATOR, NOT AT BEDSIDE. PATIENT IS ON NC SATURATING >94%. BIPAP ON STANDBY PLAN FOR USE THIS PM WHILE ASLEEP. PATIENT WANTS TO SLEEP IN RECLINER. AFLUTTER 80'S AT THIS TIME. NORMOTENSIVE. DENIES CHEST PAIN PRESSURE OR SOB AT REST. VERY HARD OF HEARING. ABD IS MILDLY DISTENDED. LUNG ARE NOT MOVING MUCH AIR, IMPROVED FROM DAY RN FIRST ASSESSMENT. IMPROVING OVERALL. COOPERATIVE WITH CARE AT THIS TIME, HISTORY OF VASCULAR DEMENTIA, CHAIR ALARM IN PLACE. AFEBRILE VSS. URINATING VIA URINAL AND ATTENDS, STRICT I/O TO BEST ABILITY
[2023-07-11] VITALS (7 sets, daily range): BP systolic 95–127; BP diastolic 52–97
[2023-07-11 04:20] LABS: BASOPHILS ABSOLUTE AUTO 0.02 K/mm3 (0.00-0.23); BASOPHILS PERCENT AUTO 0 % (0-2); EOSINOPHILS PERCENT AUTO 0 % (0-6); Hematocrit 34.8 % (37.0-53.0); Hemoglobin 10.2 g/dL (13.5-17.5); IMMATURE GRAN ABSOLUTE AUTO 0.05 K/mm3 (0.00-0.10); IMMATURE GRAN PERCENT AUTO 0 % (0-1); LYMPHOCYTES ABSOLUTE AUTO 0.69 K/mm3 (0.84-5.20); LYMPHOCYTES PERCENT AUTO 5 % (21-46); MONOCYTES ABSOLUTE AUTO 0.82 K/mm3 (0.16-1.47); MONOCYTES PERCENT AUTO 6 % (4-13); Mean Corpuscular HGB 21.2 pg (26.0-34.0); Mean Corpuscular HGB Conc 29.3 g/dL (31.5-36.5); Mean Corpuscular Volume 72 fL (80-100); NEUTROPHILS ABSOLUTE AUTO 12.35 K/mm3 (1.96-9.15); NEUTROPHILS PERCENT AUTO 89 % (41-73); Platelet Count 136 K/mm3 (150-400); RDW Coefficient Variation 21.8 % (11.7-14.2); RDW Standard Deviation 55.3 fL (35.1-46.3); Red Blood Cell Count 4.82 M/mm3 (4.30-5.90); White Blood Cell Count 13.93 K/mm3 (4.00-11.30)
[2023-07-11 04:45] LABS: Albumin/Globulin Ratio 0.9 (0.8-1.8); Bilirubin, Total 0.5 mg/dL (0.1-1.0); Bun/Creatinine Ratio 28.8 (12.0-20.0); Creatinine, Blood 1.32 mg/dL (0.60-1.20); Globulin, Blood 3.5 g/dL (2.2-4.0); Potassium, Blood 4.1 mmol/L (3.5-5.5); Total Protein, Blood 6.5 g/dL (6.4-8.2)
--- NOTE | 2023-07-11 05:41 | NUR ---
EOS: PATINET OVERALL IMPROVED, FIO2 ON BIPAP 35%. 3L ON NC WHEN ON BREAKS, REPOSITIONED TO IMPROVE REPOSITIONG IN THE NIGHT. STILL DENIES CHEST PAIN PRESSURE OR SOB. SLEPT MOST OF THE NIGHT. COOPERATIVE, PLEASANT, ASKING QUESTIONS ABOUT PLAN OF CARE, WILL CONTINUE TO MONITOR. NO CONCERNS FROM THIS RN.
[2023-07-11 15:03] LABS: Hematocrit 34.6 % (37.0-53.0)
--- NOTE | 2023-07-11 17:40 | NUR ---
END OF SHIFT PT A&O X4, PLEASANT & COOPERATIVE. PT FORGETFUL AT TIMES, REQUIRING REMINDING & REITERATING OF INFORMATION. PT 1-2 PERSON ASSIST W/ GB & FWW. MONITOR SHOWING AFLUTTER, HR 70s-110s W/ BRIEF INCREASE TO 140s THIS AFTERNOON W/ PT GETTING UP TO BSC. SPO2 > 92% ON 3L, TITRATED TO 2L NC THIS SHIFT W/ PT TOLERATING WELL. PT W/ EPISODE OF COUGHING & REPORT OF "SPITTING UP 3 [place] FULL OF BLOOD" THIS SHIFT. THIS RN TO RM AFTER, W/ DARK RED/BROWN SPUTUM NOTED IN SUCTION DEVICE PT USING TO SELF SUCTION. PT & PT REPORTING PT "HAS BEEN COUGHING FOR DAYS, MAYBE EVEN WEEKS, WITHOUT GETTING ANYTHING UP UNTIL NOW." MD SY UPDATED & PROVIDED ORDERS.
[2023-07-12 03:16] VITALS: BP 119/69
[2023-07-12 04:19] LABS: BASOPHILS ABSOLUTE AUTO 0.02 K/mm3 (0.00-0.23); BASOPHILS PERCENT AUTO 0 % (0-2); EOSINOPHILS ABSOLUTE AUTO 0.02 K/mm3 (0.00-0.68); EOSINOPHILS PERCENT AUTO 0 % (0-6); Hematocrit 34.3 % (37.0-53.0); Hemoglobin 9.8 g/dL (13.5-17.5); IMMATURE GRAN ABSOLUTE AUTO 0.04 K/mm3 (0.00-0.10); IMMATURE GRAN PERCENT AUTO 0 % (0-1); LYMPHOCYTES PERCENT AUTO 7 % (21-46); MONOCYTES ABSOLUTE AUTO 0.76 K/mm3 (0.16-1.47); MONOCYTES PERCENT AUTO 7 % (4-13); Mean Corpuscular HGB Conc 28.6 g/dL (31.5-36.5); Mean Corpuscular Volume 73 fL (80-100); NEUTROPHILS ABSOLUTE AUTO 9.07 K/mm3 (1.96-9.15); NEUTROPHILS PERCENT AUTO 85 % (41-73); Platelet Count 121 K/mm3 (150-400); RDW Coefficient Variation 21.5 % (11.7-14.2); RDW Standard Deviation 56.4 fL (35.1-46.3); Red Blood Cell Count 4.67 M/mm3 (4.30-5.90); White Blood Cell Count 10.61 K/mm3 (4.00-11.30)
--- NOTE | 2023-07-12 04:32 | NUR ---
SHIFT SUMMARY NO ACUTE CHANGES THIS SHIFT. VSS. ALERT TO BASELINE. ON 3-4LNC OR BIPAP 16/8 35% WHEN ASLEEP. IN AFIB/FLUTTER. DENIES ANY BLOODY SPUTUM THIS SHIFT. VOIDING INTO URINAL WELL. WALKED OOB TO RECLINER WELL WITH 2 ASSIST FWW AND GAIT BELT. PT REALLY DOESN'T KEEP BIPAP MASK ON WELL WHILE ASLEEP, CONSTANTLY TAKERS IT OFF AND C/O IT BEING TOO TIGHT. HAVE TRIED TO KEEP THIS ON MUCH POSSIBLE. PT LUNG SOUNDS REMAIN THE SAME. HAS BEEN COOPERATIVE AND NON IMPULSIVE. OTHERWISE, RESTING OFF AND ON.
[2023-07-12 04:38] LABS: Albumin/Globulin Ratio 0.9 (0.8-1.8); Bilirubin, Total 0.3 mg/dL (0.1-1.0); Bun/Creatinine Ratio 30.8 (12.0-20.0); Calcium, Blood 8.6 mg/dL (8.5-10.1); Creatinine, Blood 0.94 mg/dL (0.60-1.20); Globulin, Blood 3.4 g/dL (2.2-4.0); Potassium, Blood 4.2 mmol/L (3.5-5.5); Total Protein, Blood 6.4 g/dL (6.4-8.2)
--- NOTE | 2023-07-12 08:30 | NUR ---
care assumption this rn assumed care at 0700. vital signs stable. spo2 >90% on 5l nc. patient is alert and oriented x4. perrla. patient is forgetful at times. patient is a two person assist with front wheel walker and gait belt. patient reports no pain, chest pain/pressure or shortness of breath. see shift assessment for further detials. plan of care is up to date.
[2023-07-12 08:34] VITALS: BP 101/71
[2023-07-12 11:50] VITALS: BP 116/70
[2023-07-12 16:15] VITALS: BP 144/133
--- NOTE | 2023-07-12 18:26 | NUR ---
shift summary patient neuro remains unchaged. vital signs stable. patient worked with physical therapy and occupational therapy today. no acute changes. plan of care remains up to date
[2023-07-12 18:59] VITALS: BP 110/58
[2023-07-13] VITALS (7 sets, daily range): BP systolic 103–129; BP diastolic 67–80
[2023-07-13 05:13] LABS: BASOPHILS ABSOLUTE AUTO 0.03 K/mm3 (0.00-0.23); BASOPHILS PERCENT AUTO 1 % (0-2); EOSINOPHILS ABSOLUTE AUTO 0.07 K/mm3 (0.00-0.68); EOSINOPHILS PERCENT AUTO 1 % (0-6); Hematocrit 35.3 % (37.0-53.0); IMMATURE GRAN ABSOLUTE AUTO 0.06 K/mm3 (0.00-0.10); IMMATURE GRAN PERCENT AUTO 1 % (0-1); LYMPHOCYTES ABSOLUTE AUTO 0.67 K/mm3 (0.84-5.20); LYMPHOCYTES PERCENT AUTO 12 % (21-46); MONOCYTES ABSOLUTE AUTO 0.49 K/mm3 (0.16-1.47); MONOCYTES PERCENT AUTO 9 % (4-13); Mean Corpuscular HGB 21.1 pg (26.0-34.0); Mean Corpuscular HGB Conc 28.3 g/dL (31.5-36.5); Mean Corpuscular Volume 74 fL (80-100); NEUTROPHILS ABSOLUTE AUTO 4.44 K/mm3 (1.96-9.15); NEUTROPHILS PERCENT AUTO 77 % (41-73); Platelet Count 127 K/mm3 (150-400); RDW Coefficient Variation 21.3 % (11.7-14.2); RDW Standard Deviation 56.8 fL (35.1-46.3); Red Blood Cell Count 4.75 M/mm3 (4.30-5.90); White Blood Cell Count 5.76 K/mm3 (4.00-11.30)
--- NOTE | 2023-07-13 05:49 | NUR ---
SHIFT SUMMARY NO ACUTE CHANGES THIS SHIFT. VSS. AXO TO BASELINE. REMAINS STABLE ON 4LNC OR CPAP WHILE ASLEEP. PT WITHOUT HEMOPTYSIS TONIGHT. VOIDING WELL. HAS BEEN TO CHAIR AND BACK TO BED THIS SHIFT WITH FREQUENT REPOSITIONS. OTHERWISE, PT RESTING OFF AND ON. NON IMPULSIVE AND COOPERATIVE WITH CARE. BED ALARM ON.
[2023-07-13 06:02] LABS: Albumin/Globulin Ratio 0.8 (0.8-1.8); Bilirubin, Total 0.4 mg/dL (0.1-1.0); Bun/Creatinine Ratio 32.8 (12.0-20.0); Creatinine, Blood 0.82 mg/dL (0.60-1.20); Globulin, Blood 3.6 g/dL (2.2-4.0); Potassium, Blood 4.6 mmol/L (3.5-5.5); Total Protein, Blood 6.6 g/dL (6.4-8.2)
--- NOTE | 2023-07-13 08:19 | NUR ---
CARE ASSUMPTION/INCREASE HEART RATE this rn assumed care at 0700. patient heart rate in 130-150 in aflutter on tele with increase ST elevation, ekg done. md hdez in room and discussing with and patient the plan of care and heart rate. 5mg lopressor pushed and pateint heart rate in 110s. bp stable. plan is to continue antibiotics, work with therapy, repeat ekg when rate is lower, and will resume anticoagulant tomorrow. spo2 >90% on 4l nc. lung sounds crackles bilateral in bases and coarse in upper lobes. patient educated on incentive spirometer and flutter valve. patient demonstrated using both. patient is alert and oriented x4. perrla. patient reports no pain, chest pain, or shortness of breath. see shift assessment for further detials.
--- NOTE | 2023-07-13 16:13 | NUR ---
SHIFT SUMMARY/TRANSFER OF CARE shawanda rn gave bedsdie report to trevor louise. patient transfered to surgical room 224. patient left with all belongings. updated on patient no room. no acute changes throughout the shift. plan remains up to date.
--- NOTE | 2023-07-13 16:15 | NUR ---
TRANSFER PT ARRIVED FROM PCU VIA WHEELCHAIR. TRANSFERED WITH WALKER AND 1 ASSIST. ON 4L OXYGEN AT THIS TIME. WILL TITRATE TOLERATED. RT IN ROOM TO SET UP CPAP AND BREATHING TREATMENT. TELE CONNECTED, REMAINS IN A FLUTTER. CALL LIGHT IN REACH. PT DENIES ANY NEEDS AT THIS TIME.
--- NOTE | 2023-07-13 17:09 | NUR ---
SHIFT SUMMARY NO ACUTE CHANGES SINCE ARRIVAL TO UNIT. PT AMBULATES WELL, BUT NEEDS HELP STANDING UP. DENIES ANY SOB. IS CONFUSED BUT PLEASANT. COOPERATIVE WITH CARE. PLAN IS TO CONTINUE ENCOURAGING INCENTIVE SPIROMETRY AND AMBULATION.
[2023-07-14 04:44] LABS: BASOPHILS ABSOLUTE AUTO 0.02 K/mm3 (0.00-0.23); BASOPHILS PERCENT AUTO 0 % (0-2); EOSINOPHILS ABSOLUTE AUTO 0.07 K/mm3 (0.00-0.68); EOSINOPHILS PERCENT AUTO 1 % (0-6); Hematocrit 35.5 % (37.0-53.0); Hemoglobin 10.1 g/dL (13.5-17.5); IMMATURE GRAN ABSOLUTE AUTO 0.08 K/mm3 (0.00-0.10); IMMATURE GRAN PERCENT AUTO 2 % (0-1); LYMPHOCYTES ABSOLUTE AUTO 0.87 K/mm3 (0.84-5.20); LYMPHOCYTES PERCENT AUTO 17 % (21-46); MONOCYTES ABSOLUTE AUTO 0.43 K/mm3 (0.16-1.47); MONOCYTES PERCENT AUTO 9 % (4-13); Mean Corpuscular HGB 20.8 pg (26.0-34.0); Mean Corpuscular HGB Conc 28.5 g/dL (31.5-36.5); Mean Corpuscular Volume 73 fL (80-100); NEUTROPHILS ABSOLUTE AUTO 3.52 K/mm3 (1.96-9.15); NEUTROPHILS PERCENT AUTO 71 % (41-73); Platelet Count 131 K/mm3 (150-400); RDW Coefficient Variation 21.2 % (11.7-14.2); RDW Standard Deviation 55.4 fL (35.1-46.3); Red Blood Cell Count 4.85 M/mm3 (4.30-5.90); White Blood Cell Count 4.99 K/mm3 (4.00-11.30)
[2023-07-14 04:58] LABS: Bun/Creatinine Ratio 26.6 (12.0-20.0); Calcium, Blood 8.7 mg/dL (8.5-10.1); Creatinine, Blood 0.87 mg/dL (0.60-1.20); Potassium, Blood 4.2 mmol/L (3.5-5.5)
[2023-07-14 05:16] VITALS: BP 93/66
--- NOTE | 2023-07-14 06:49 | NUR ---
SHIFT SUMMARY PT HAS BEEN ABLE TO SLEEP THROUGH THE NIGHT WITH NO PROBLEMS, COFUSION NOTED AT TIMES, DOES NOT TRY TO GET OOB WITHOUT ASSISTANCE, USES CALL LIGHT PRN, VOIDING WNL, VSS, AFLUTTER ON TELE -'S, SURGICAL PHYSICIAN ASSISTANT REPORTED HR OF 48-50 X2, PT WAS SLEEPING, QUICKLY RETURNED TO BASELINE, O2 VIA NC @ 4 L/MIN O2, CPAP @ NIGHT, BIOX IN PLACE, PT'S CALLED THIS AM, UPDATE GIVEN, REPORT GIVEN TO DAY RN, CALL LIGHT IN REACH.
[2023-07-14 07:31] VITALS: BP 122/57
[2023-07-14] MEDS ORDERED: CEFP200 PO (14:44)
--- NOTE | 2023-07-14 16:48 | NUR ---
PATIENT DISCAHRGED AT 1520, IV TAKEN OUT, TRANSPORT WITH WHEELCHAIR TO WHEELCHAIR VAN. PATIENT BELONGINGS WITH SPOUSE, ALL INSTRUCTIONS SIGNED BY SPOUSE AND AKNOWLEDGED.
== END 2023-07-14 15:49 | disposition home health service (06) | DRG 291 ==
LOC: ER 06:12 → PCU 09:51 → SURS 07-13 16:14
PROVIDERS: Family Medicine; Student in an Organized Health Care Education/Training Program; ADMIT Internal Medicine
PROC: 4A033R1 Measurement of Arterial Saturation, Peripheral, Percutaneous Approach (ICD-10-PCS; principal; 2023-07-10)
PROC: 5A09357 Assistance with Respiratory Ventilation, Less than 24 Consecutive Hours, Continuous Positive Airway Pressure (ICD-10-PCS; 2023-07-10)
DX: I11.0 Hypertensive heart disease with heart failure (principal); I50.33 Acute on chronic diastolic (congestive) heart failure; J96.01 Acute respiratory failure with hypoxia; J18.9 Pneumonia, unspecified organism; N17.9 Acute kidney failure, unspecified; I48.92 Unspecified atrial flutter; J44.0 Chronic obstructive pulmonary disease with (acute) lower respiratory infection; Z68.43 Body mass index [BMI] 50.0-59.9, adult; R04.2 Hemoptysis; J44.1 Chronic obstructive pulmonary disease with (acute) exacerbation; Z66 Do not resuscitate; N40.0 Benign prostatic hyperplasia without lower urinary tract symptoms; K21.9 Gastro-esophageal reflux disease without esophagitis; F43.10 Post-traumatic stress disorder, unspecified; E03.9 Hypothyroidism, unspecified; G47.33 Obstructive sleep apnea (adult) (pediatric); R94.31 Abnormal electrocardiogram [ECG] [EKG]; E66.01 Morbid (severe) obesity due to excess calories; I48.0 Paroxysmal atrial fibrillation; B96.20 Unspecified Escherichia coli [E. coli] as the cause of diseases classified elsewhere; B95.61 Methicillin susceptible Staphylococcus aureus infection as the cause of diseases classified elsewhere; E86.1 Hypovolemia; G89.4 Chronic pain syndrome; F01.50 Vascular dementia, unspecified severity, without behavioral disturbance, psychotic disturbance, mood disturbance, and anxiety; Z79.899 Other long term (current) drug therapy; Z79.51 Long term (current) use of inhaled steroids; Z79.01 Long term (current) use of anticoagulants; Z11.52 Encounter for screening for COVID-19; Z88.8 Allergy status to other drugs, medicaments and biological substances; Z88.5 Allergy status to narcotic agent; Z98.890 Other specified postprocedural states; Z87.891 Personal history of nicotine dependence
CPT/HCPCS: 0202U; 36415; 36600; 71045; 80048; 80053; 82803; 83605; 83735; 83880; 84145; 84484; 85014; 85018; 85025; 87040; 87070; 87077; 87147; 87186; 87205; 93005; 93010; 94640; 94644; 94660; 94664; 94761; 94762; 96365; 96375; 96376; 97110; 97162; 97165; 97530; 99285-25; A9270; J0456; J0696; J1940; J2930; J7050

== ENCOUNTER 2023-07-14 19:41 | Observation (INO) | payer OTHER ==
[~2023-07-14] VITALS: Ht 182.9 cm; Wt 129.7 kg
[~2023-07-14 19:41] MED LIST changes: +CEFP200 PO
[2023-07-14 20:08] LABS: BASOPHILS ABSOLUTE AUTO 0.02 K/mm3 (0.00-0.23); BASOPHILS PERCENT AUTO 0 % (0-2); EOSINOPHILS ABSOLUTE AUTO 0.05 K/mm3 (0.00-0.68); EOSINOPHILS PERCENT AUTO 1 % (0-6); Hematocrit 37.9 % (37.0-53.0); Hemoglobin 10.8 g/dL (13.5-17.5); IMMATURE GRAN ABSOLUTE AUTO 0.15 K/mm3 (0.00-0.10); IMMATURE GRAN PERCENT AUTO 2 % (0-1); LYMPHOCYTES ABSOLUTE AUTO 0.64 K/mm3 (0.84-5.20); LYMPHOCYTES PERCENT AUTO 9 % (21-46); MONOCYTES PERCENT AUTO 7 % (4-13); Mean Corpuscular HGB 20.9 pg (26.0-34.0); Mean Corpuscular HGB Conc 28.5 g/dL (31.5-36.5); Mean Corpuscular Volume 73 fL (80-100); NEUTROPHILS ABSOLUTE AUTO 5.85 K/mm3 (1.96-9.15); NEUTROPHILS PERCENT AUTO 81 % (41-73); NRBC ABSOLUTE 0.02 K/mm3 (0.00-0.02); NRBC Auto 0.3 /100 WBC (0.0-0.2); Platelet Count 148 K/mm3 (150-400); RDW Coefficient Variation 21.3 % (11.7-14.2); RDW Standard Deviation 55.9 fL (35.1-46.3); Red Blood Cell Count 5.16 M/mm3 (4.30-5.90); White Blood Cell Count 7.21 K/mm3 (4.00-11.30)
[2023-07-14 20:17] LABS: Albumin, Blood 3.1 g/dL (3.4-5.0); Albumin/Globulin Ratio 0.8 (0.8-1.8); Bilirubin, Total 0.4 mg/dL (0.1-1.0); Calcium, Blood 8.9 mg/dL (8.5-10.1); Creatinine, Blood 0.96 mg/dL (0.60-1.20); Globulin, Blood 3.7 g/dL (2.2-4.0); Magnesium, Blood 1.9 mg/dL (1.6-2.4); Potassium, Blood 4.1 mmol/L (3.5-5.5); Total Protein, Blood 6.8 g/dL (6.4-8.2)
[2023-07-14 22:53] VITALS: BP 126/75
--- NOTE | 2023-07-14 23:30 | NUR ---
ARRIVAL TO PCU NOTE: RECEIVED REPORT FROM SERVICE OFFICER JOSE Wiseman ~ 2225, PT SHORTLY ARRIVED TO PCU AT 2240. TRANSFERRED FROM [facility] TO PCU BED VIA SLIDE SHEET. A/Ox4 AND COOPERATIVE WT CARE. VERY [place] HEARING WITH SLIGHTLY MUMBLED SPEECH NOTED. PUPILS PERRLA. GROSS MOVEMENTS EQUAL BILAT WITH REPORTS OF GENERAL WEAKNESS NOTED. ARRIVED IN AFLUTTER 100-120'S. AMIO gtt STARTED IN ER AND RUNNING ORDERED VIA EMAR. DENIES ANY CP, PRESSURE, PALPITATIONS OR DIZZINESS. SBP STABLE IN THE 120'S. RESPIRATORY, MAINTAINING SPO2 90-94% ON 2L VIA NC. DENIES SOB OR DYSPNEA AT REST, BUT INCREASED WORK OF BREATHING NOTED WITH EXERTION. NO RETRACTIONS OR ACCESSORY MUSCLE USE NOTED. GI/, ABLE TO VOID SHYANN URINE INTO URINAL WITH SOME STAFF ASSISTANCE. ATTENDS SOILED WITH STOOL WHEN ARRIVED TO PCU FROM ER. NO WOUNDS NOTED. ABD DISTENDED WITH BS PRESENT IN ALL QUADRANTS. DENIES N/V/D AT THIS TIME. WILL CONTINUE TO PROCESS MD ORDERS. CONNER LOMELI UPON ARRIVAL TO PCU.
[2023-07-15] VITALS (7 sets, daily range): BP systolic 111–156; BP diastolic 80–99
[2023-07-15 04:18] LABS: BASOPHILS ABSOLUTE AUTO 0.03 K/mm3 (0.00-0.23); BASOPHILS PERCENT AUTO 1 % (0-2); EOSINOPHILS ABSOLUTE AUTO 0.08 K/mm3 (0.00-0.68); EOSINOPHILS PERCENT AUTO 1 % (0-6); Hematocrit 36.7 % (37.0-53.0); Hemoglobin 10.4 g/dL (13.5-17.5); IMMATURE GRAN ABSOLUTE AUTO 0.18 K/mm3 (0.00-0.10); IMMATURE GRAN PERCENT AUTO 3 % (0-1); LYMPHOCYTES ABSOLUTE AUTO 0.91 K/mm3 (0.84-5.20); LYMPHOCYTES PERCENT AUTO 16 % (21-46); MONOCYTES ABSOLUTE AUTO 0.59 K/mm3 (0.16-1.47); MONOCYTES PERCENT AUTO 10 % (4-13); Mean Corpuscular HGB 20.9 pg (26.0-34.0); Mean Corpuscular HGB Conc 28.3 g/dL (31.5-36.5); Mean Corpuscular Volume 74 fL (80-100); NEUTROPHILS ABSOLUTE AUTO 4.07 K/mm3 (1.96-9.15); NEUTROPHILS PERCENT AUTO 69 % (41-73); NRBC ABSOLUTE 0.02 K/mm3 (0.00-0.02); NRBC Auto 0.3 /100 WBC (0.0-0.2); Platelet Count 142 K/mm3 (150-400); RDW Coefficient Variation 21.4 % (11.7-14.2); RDW Standard Deviation 55.8 fL (35.1-46.3); Red Blood Cell Count 4.98 M/mm3 (4.30-5.90); White Blood Cell Count 5.86 K/mm3 (4.00-11.30)
[2023-07-15 04:39] LABS: Albumin, Blood 2.8 g/dL (3.4-5.0); Albumin/Globulin Ratio 0.8 (0.8-1.8); Bilirubin, Total 0.4 mg/dL (0.1-1.0); Bun/Creatinine Ratio 23.2 (12.0-20.0); Calcium, Blood 8.6 mg/dL (8.5-10.1); Creatinine, Blood 0.91 mg/dL (0.60-1.20); Globulin, Blood 3.6 g/dL (2.2-4.0); Potassium, Blood 4.2 mmol/L (3.5-5.5); Total Protein, Blood 6.4 g/dL (6.4-8.2)
--- NOTE | 2023-07-15 06:31 | NUR ---
SHIFT SUMMARY: NO ACUTE CHANGEA SINCE ARRIVAL NOTED. REMAINS IN AFLUTTER RANGING 60-90'S WITH NO REPORTS OF CP, PRESSURE, OR DIZZINESS. SBP REMAINS STABLE 120-140'S. SEE ARRIVAL NOTE FOR MORE DETAILS. ASSESSED PT FOR RISKS OF ANY IGNITION SOURCES WELL BEHAVIORS FOR INCREASED RISKS OF FIRE DANGER. PT EDUCATED ON COMMON SOURCES OF IGNITION WELL NEED TO KEEP A SAFE ENVIRONMENT. PT VOICED UNDERSTANDING. NO NEW ORDERS AT THIS TIME, WILL REPORT TO ONCOMING RN. CONNER LOMELI OF THIS NOTE
--- NOTE | 2023-07-15 18:46 | NUR ---
PT SUMMARY: PT ALERT ADN ORIENTED X3-4, FORGETFUL, EPISODES OF CONFUSION THAT WORSENS T/O THE DAY HX DEMENTIA, REDIRECTABLE, IMPULSIVE AT TIMES, BED AND CHAIR ALARM ON FOR SAFETY. VITALS HRR AFLUTTER 60-80'S, SBP 140'S, SATS ABOVE 90% ON 3L OF O2, PER PT NEEDING INCREASE UP T 8L OF O2 WITH EXERTION PT HAS NOTICEABLE SOB WITHOUR DESATTING TOLERATING 3L OF O2. AFEBRILE. SPEECH THERAPIST WORKED WITH THE PT, PT TOLERATING MECH SOFT DIET, THICKENED LIQUIDS, WHOLE MEDS WITH PUDDING. PT HAS BEEN INCONTINENT OF VOIDS ALL SHIFT CONDOM CATH IN PLACE REPLACED TWICE PT ACCIDENTALLY PULLED. BRINA WAS HERE THIS MORNING WAS GIVEN UPDATE REGARDING PT'S STATUS ALSO CALLED BY THE END OF THE SHIFT, PT KEEPS CALLING HER ON THE PHONE WANTING TO GO HOME. PT WAS REDIRECTED PT AGREED TO STAY TONIGHT DC IN AM IF HRR STABLE. AMIO GTT TRANSITIONED TO PO. NO OTHER ISSUES ENCOUNTERED PT STAYED UP IN THE RECLINER SINCE BEFORE DINNER. 1PA VIA GAITBELT AND WALKER. WILL REPORT TO ONCOMING SHIFT
--- NOTE | 2023-07-16 01:59 | NUR ---
TRANSFER TO PCU NOTE: RECEIVED BEDSIDE REPORT FROM RN YAZAN. PT SHORTLY ARRIVED FROM ICU TO PCU 3 ~0025 THIS AM. ALL QUESTIONS ANSWERED. A/Ox4 AND COOPERATIVE [facility] CARE. I HAVE REVIEWED PREVIOUS RN'S SHIFT ASSESSMENT AND I AM IN AGREEMENT. CONNER LOMELI UPON ARRIVAL TO PCU.
[2023-07-16 03:28] VITALS: BP 134/68
--- NOTE | 2023-07-16 05:18 | NUR ---
SHIFT SUMMARY: A/Ox2-3 AND ABLE TO MAKE MOST OF HIS NEEDS KNOWN. CONTINUES TO HAVE INTERMITTENT EPISODES OF CONFUSION SUCH THINKING HE IS HOME WITH HIS OR PULLING AT LINES/IV'S NOT REMEMBERING WHAT THEY ARE FOR. CAN BE IMPULSIVE AT TIMES, BED ALARM ON TO MAINTAIN PT SAFETY. CARDIAC, REMAINS IN AFLUTTER RANGING 60-90'S WITH NO COMPLAINTS OF CP. PRESSURE, OR DIZZINESS T/O THE NIGHT. SBP HAS BEEN STABLE AVERAGING 130'S. RESPIRATORY, MAINTAINS SPO2 90-94% ON 2-3L VIA NC. INCREASED WORK OF BREATHING NOTED WITH MODERATE EXERTION AND CAN HAVE HARD TIME SPEAKING FULL SENTENCES WITHOUT BECOMING A LITTLE SOB. REFUSES TO USE HOSPITAL SUPPLIED CPAP WHEN SLEEPING. GI/, CONTINUES TO BE INCONTINENT OF URINE AND STOOL. SEVERAL INCIDENCES OF WETTING HIS ATTENDS AND NOT REALIZING HE HAD SOILED HIMSELF. ATTENDS IN PLACE AND CHANGED PRN TO KEEP C/D/I. ONE SMALL SMEAR NOTED OF BROWN STOOL. GENERAL WEAKNESS NOTED WITH PT STRUGGLING TO STAND UP OR AMBULATE WITHOUT 1-2 STAFF ASSIST AND FWW W/GAIT BELT. POSSIBLE D/C IN THE AM PER DAY SHIFT REPORT. ASSESSED PT FOR RISKS OF ANY IGNITION SOURCES WELL BEHAVIORS FOR INCREASED RISKS OF FIRE DANGER. PT EDUCATED ON COMMON SOURCES OF IGNITION WELL NEED TO KEEP A SAFE ENVIRONMENT. PT VOICED UNDERSTANDING. NO NEW ORDERS AT THIS TIME, WILL REPORT TO ONCOMING RN. CONNER LOMELI OF THIS NOTE
[2023-07-16 07:32] VITALS: BP 132/76
[2023-07-16] MEDS ORDERED: AMIODARONE HCL200 M1 PO (11:23)
[2023-07-16 11:49] VITALS: BP 128/77
[2023-07-16 12:59] VITALS: BP 133/74
--- NOTE | 2023-07-16 18:04 | NUR ---
DISCHARGE HOME PT A&O X4 THOUGH FORGETFUL, REQUIRING REMINDING OF INFORMATION. PT PLEASANT & COOPERATIVE, APPROPRIATE T/O DAY. VSS. SPO2 > 92% ON 2L NC. MONITOR SHOWING AFLUTTER, HR 60s-80s. W/ ORDERS FOR DISCHARGE HOME. DISCHARGE INSTRUCTIONS REVIEWED W/ PT & SENT HOME W/ PT. DISCHARGE MEDICATIONS & INFORMATION REVIEWED W/ PT . PT TAKEN OUT W/ BELONGINGS IN WHEELCHAIR @ APPROX 1800.
== END 2023-07-16 18:10 | disposition home or self-care (01) ==
LOC: ER 19:41 → PCU 19:42
PROVIDERS: Student in an Organized Health Care Education/Training Program; ADMIT Internal Medicine
DX: J96.01 Acute respiratory failure with hypoxia (principal); N17.9 Acute kidney failure, unspecified; I11.0 Hypertensive heart disease with heart failure; I50.30 Unspecified diastolic (congestive) heart failure; I48.91 Unspecified atrial fibrillation; N40.0 Benign prostatic hyperplasia without lower urinary tract symptoms; J44.9 Chronic obstructive pulmonary disease, unspecified; K21.9 Gastro-esophageal reflux disease without esophagitis; E03.9 Hypothyroidism, unspecified; G47.33 Obstructive sleep apnea (adult) (pediatric); J18.9 Pneumonia, unspecified organism; I45.81 Long QT syndrome; F01.50 Vascular dementia, unspecified severity, without behavioral disturbance, psychotic disturbance, mood disturbance, and anxiety; Z66 Do not resuscitate; Z79.899 Other long term (current) drug therapy
CPT/HCPCS: 36415; 71045; 80053; 82947; 83735; 83880; 85025; 92610; 93005; 93010; 94640; 94660; 94664; 94762; 96365; 96366; 96367; 96368; 96372-59; 96375; 96376; 99285-25; A9270; G0378; J0282; J0696; J1650; J1940; J3475; J7030; J7060